=== PATIENT | male | born 1980 | race Caucasian/White ===

== ENCOUNTER 2020-11-21 23:16 | Emergency (ER) | payer OTHER ==
[2020-11-21] MEDS ORDERED: Ondansetron ODT 4 MG TAB ONE ×2 (23:36→23:45)
[2020-11-21] MEDS ORDERED: Boostrix 0.5 ML (Tdap) VIAL ONE (23:45)
[2020-11-21] MEDS ORDERED: Ondansetron PF 4 MG/2 ML Vial ONE (23:45)
== END 2020-11-22 ==
LOC: ERS 23:16
DX: S71.152A Open bite, left thigh, initial encounter (principal); W54.0XXA Bitten by dog, initial encounter; F17.220 Nicotine dependence, chewing tobacco, uncomplicated
CPT/HCPCS: 90471; 90715; J2405; Q0162

== ENCOUNTER 2020-11-30 20:49 | Emergency (ER) | payer OTHER, SELFPAY ==
[2020-11-30] MEDS ORDERED: Lorazepam 2 MG/ML VIAL ONE (21:19)
[2020-11-30] MEDS ORDERED: Haloperidol Lactate 5 MG/ML VIAL ONE (21:19)
[2020-11-30 22:09] LABS: #Eosinphils 0.1 thou/uL (0.0-0.7); #Lymphocytes 1.7 thou/uL (1.20-3.40); #Monocytes 0.3 thou/uL (0.11-0.59); #Neutrophils 2.3 thou/uL (1.40-6.50); %Basophils 0.2 % (0.0-1.0); %Eosinophils 3.2 % (0.0-10.0); %Lymphocytes 39.3 % (21.0-51.0); %Monocytes 5.7 % (0.0-10.0); %Neutrophils 51.6 % (42.0-75.0); Hemoglobin 15.2 g/dL (14.0-18.0); Mean Corpuscular HGB CONC 34.5 g/dL (32.0-36.0); Mean Corpuscular Hemoglobin 30.1 pg (27.0-31.0); Mean Corpuscular Volume 87.3 fL (78.0-98.0); Mean Platelet Volume 7.9 fL (7.4-10.4); Platelet Count 214 thou/uL (130-400); RBC Distribution Width 11.4 % (11.5-14.5); Red Blood Cell (RBC) Count 5.06 mill/uL (4.70-6.10); White Blood Cell (WBC) Count 4.4 thou/uL (4.8-10.8)
[2020-11-30 22:25] LABS: ALT (SGPT) 23 U/L (8-55); AST (SGOT) 25 U/L (5-34); Acetaminophen Less than 6.0 mcg/mL (10.0-30.0); Albumin 4.5 g/dL (3.5-5.0); Alcohol 231 mg/dL (Less than 10); Alkaline Phosphatase 93 U/L (40-110); Anion Gap 16 mmol/L (10-20); BUN (Urea Nitrogen) 8 mg/dL (8.9-20.6); Bilirubin, Total 0.2 mg/dL (0.2-1.2); CK (CPK) 303 U/L (30-200); Calc. Creatinine Clearance 0 mL/min (70-130); Calcium 8.8 mg/dL (7.8-10.44); Carbon Dioxide 25 mmol/L (22-29); Chloride 107 mmol/L (98-107); Globulin 2.7 g/dL (2.4-3.5); Glucose 99 mg/dL (70-105); Potassium 3.8 mmol/L (3.5-5.1); Protein, Total 7.2 g/dL (6.0-8.3); Salicylate Less than 8.0 mg/dL (15.0-30.0); Sodium 144 mmol/L (136-145)
== END 2020-12-01 05:20 | disposition home or self-care (01) ==
LOC: ERS 20:49
DX: F10.129 Alcohol abuse with intoxication, unspecified (principal); Y90.7 Blood alcohol level of 200-239 mg/100 ml; F17.220 Nicotine dependence, chewing tobacco, uncomplicated
CPT/HCPCS: 36415; 80053; 80307; 82550; 84443; 85025; 93005; 96372; J1630; J2060